=== PATIENT | male | born 1975 | race Caucasian/White ===

== ENCOUNTER 2019-08-14 13:54 | Emergency (ER) | payer OTHER ==
[~2019-08-14] VITALS: Ht 180.3 cm; Wt 93.0 kg
[2019-08-14] MEDS ORDERED: Neurontin 300300 MG PO (15:17)
[2019-08-14] MEDS ORDERED: AMOCLA875 PO (15:17)
[2019-08-14] MEDS ORDERED: Naprosyn500 MG PO (15:17)
== END 2019-08-14 15:27 | disposition home or self-care (01) ==
LOC: ER 13:54
DX: K04.7 Periapical abscess without sinus (principal); G50.0 Trigeminal neuralgia; Z76.0 Encounter for issue of repeat prescription
CPT/HCPCS: 99282